=== PATIENT | male | born 1995 | race Caucasian/White ===

== ENCOUNTER 2023-01-29 17:16 | Emergency (ER) | payer BC ==
[~2023-01-29] VITALS: Ht 175.3 cm; Wt 98.0 kg
[2023-01-29 17:26] VITALS: BP 118/68
[2023-01-29 17:30] VITALS: BP 118/67
[2023-01-29] MEDS ORDERED: BACTRIM DS1 TAB PO ×2 (17:32→18:16)
[2023-01-29 17:45] VITALS: BP 115/64
== END 2023-01-29 18:28 | disposition home or self-care (01) | DRG 603 ==
LOC: ED 17:16
PROC: 0H9DXZZ Drainage of Right Lower Arm Skin, External Approach (ICD-10-PCS; principal; 2023-01-29)
DX: L02.413 Cutaneous abscess of right upper limb (principal)

== ENCOUNTER 2023-01-30 07:39 | Emergency (ER) | payer BC ==
[~2023-01-30] VITALS: Ht 175.3 cm; Wt 97.2 kg
[~2023-01-30 07:39] MED LIST: BACTRIM DS1 TAB PO
[2023-01-30 07:48] VITALS: BP 118/76
[2023-01-30 08:00] VITALS: BP 113/76
[2023-01-30 08:19] VITALS: BP 114/78
[2023-01-30 08:26] VITALS: BP 114/78
== END 2023-01-30 08:31 | disposition home or self-care (01) | DRG 951 ==
LOC: ED 07:39
DX: Z48.01 Encounter for change or removal of surgical wound dressing (principal)

== ENCOUNTER 2023-05-01 23:13 | Emergency (ER) | payer BC ==
[~2023-05-01] VITALS: Ht 175.3 cm; Wt 91.0 kg
[2023-05-01 23:17] VITALS: BP 140/101
[2023-05-02 00:04] LABS: BASO% 0.3 % (0-3); EOS% 1.3 % (0-8); HEMOGLOBIN 15.2 g/dl (14.0-18.0); IMMATURE GRANULOCYTES 0.1 % (0.0-5.0); MEAN CELL VOLUME 90.5 fL CALC (80.0-100.0); MEAN CORPUSCULAR HGB 30.6 pG CALC (26.0-32.0); MEAN CORPUSCULAR HGB CONC 33.8 g/dL CAL (32.0-36.0); MONO% 9.1 % (2-13); NEUT# 4.95 thou/uL (1.82-7.42); NEUT% 47.2 % (42-76); RED BLOOD COUNT 4.97 mill/uL (4.70-6.10); RED CELL DISTRI WIDTH 13.2 % (11.5-15.5)
[2023-05-02 00:19] LABS: ALBUMIN 4.7 g/dL (3.2-5.0); ALKALINE PHOSPHATASE 88 u/l (38-126); ANION GAP 14 (6-22 (CALC)); BILIRUBIN, TOTAL 0.4 mg/dL (0.2-1.3); BUN 24 mg/dL (9-20); BUN/CREATININE RATIO 31 (12-20 (CALC)); CARBON DIOXIDE 24 mmol/l (22-30); CHLORIDE 107 mmol/l (95-108); CPK 260 u/l (55-170); CREATININE 0.8 mg/dL (0.7-1.3); ETHYL ALCOHOL 0 mg/dl (0-30); GFR FOR AFR.AMER. > 60 ML/MIN (>=60 (CALC)); GFR OTHER RACES > 60 ML/MIN (>=60 (CALC)); POTASSIUM 3.9 mmol/l (3.5-5.1); SGOT/AST 35 u/l (17-59); SODIUM 141 mmol/l (137-146); TOTAL PROTEIN 7.7 g/dL (6.3-8.2)
[2023-05-02 01:07] LABS: URINE BILIRUBIN - DIPSTICK Negative (NEGATIVE); URINE BLOOD DIPSTICK Negative (NEGATIVE); URINE COLOR Yellow; URINE GLUCOSE - DIPSTICK Negative (NEGATIVE); URINE KETONE Negative (NEGATIVE); URINE LEUK ESTERASE Negative (NEGATIVE); URINE NITRITE - DIPSTICK Negative (Negative); URINE PH 5.5 (4.5-8.0); URINE PROTEIN - DIPSTICK Negative (NEG-TRACE); URINE SPECIFIC GRAVITY >=1.030; URINE UROBILINOGEN - DIPSTICK 0.2 E.U./dL (0.2)
[2023-05-02 03:35] VITALS: BP 140/101
== END 2023-05-02 00:51 | disposition left against medical advice (07) | DRG 204 ==
LOC: ED 23:13
PROVIDERS: Family Medicine
DX: R06.02 Shortness of breath (principal); Z72.0 Tobacco use; Z53.29 Procedure and treatment not carried out because of patient's decision for other reasons